=== PATIENT | male | born 1980 | race Hispanic/Latino ===

== ENCOUNTER 2021-05-14 10:56 | Outpatient (CLI) | payer OTHER ==
--- NOTE | 2021-05-14 15:32 | Ultrasound Report ---
ULTRASOUND ABDOMEN, COMPLETE INDICATION / CLINICAL INFORMATION: TO RULE OUT KIDNEY STONES. COMPARISON: None available. FINDINGS: PANCREAS: No significant abnormality. ABDOMINAL AORTA: No significant abnormality. IVC: No significant abnormality. LIVER: The liver is normal in size measuring 13.2 cm . No evidence of focal hepatic lesion. Normal he patopedal blood flow within the main portal vein. GALLBLADDER: A small amount of gallbladder sludge is visualized. No evidence of gallstones, wall thic kening, or pericholecystic fluid. BILE DUCTS: No significant abnormality. Common bile duct measures 3 mm. KIDNEYS: Right: The right kidney measures 11.8 cm. Nonobstructing mid pole stone measuring 5 mm. Lef t: The left kidney measures 12.3 cm. Moderate hydronephrosis. SPLEEN: The spleen measures 9.4 cm. No significant abnormality. FREE FLUID: None. ADDITIONAL FINDINGS: None. IMPRESSION: 1. There is moderate left hydronephrosis. No obstructive source is identified. Unless this is a known chronic finding, CT may be useful. 2. Nonobstructing right nephrolithiasis. 3. Gallbladder sludge. No evidence of gallstones. Scribed by: Martha Ott RDMS, CYNTHIA, KATHARINE Scribed: 05/14/2021 1:36 PM I have reviewed the images, agree with this report, and edited this report as needed. Signer Name: Wolfgang Garcia MD Signed: 05/14/2021 3:28 PM Workstation Name: [id number]
== END 2021-05-14 10:57 | disposition home or self-care (01) ==
LOC: US 10:56
PROVIDERS: ATTEND Specialist
DX: N20.0 Calculus of kidney (principal); N13.30 Unspecified hydronephrosis
CPT/HCPCS: 76700